=== PATIENT | male | born 1955 | race Caucasian/White ===

== ENCOUNTER 2016-11-22 10:51 | Inpatient (IN) | payer MEDICARE ==
[~2016-11-22] VITALS: Ht 170.2 cm; Wt 64.6 kg
[2016-11-22] MEDS ORDERED: LORazepam 2 MG/ML, 1ML ONE (11:11)
[2016-11-22] MEDS ORDERED: LORazepam 2 MG/ML, 1ML IVPush ONE (11:30)
[2016-11-22 12:42] LABS: BLOOD UREA NITROGEN 8 mg/dL (7-18)
[2016-11-22 12:44] LABS: ASPARTATE AMINO TRANSFERASE 38 U/L (15-37)
[2016-11-22 13:04] LABS: HEMOGLOBIN 16.6 g/dL (13.7-18.0)
[2016-11-22 13:06] LABS: DAU SCREEN DISCLAIMER
[2016-11-22] MEDS ORDERED: LISI2.5T PO (14:15)
[2016-11-22] MEDS ORDERED: HYDR12.53 PO (14:15)
[2016-11-22] MEDS ORDERED: HYDR25TA6 PO (14:17)
[2016-11-22] MEDS ORDERED: LISI40TA PO (14:18)
[2016-11-22] MEDS ORDERED: AMLO5TAB2 PO (14:18)
[2016-11-22] MEDS ORDERED: ALBU18HF INH (14:19)
[2016-11-22] MEDS ORDERED: DOCUSATE 100 MG CAPSULE PO PRN (14:30)
[2016-11-22] MEDS ORDERED: LORazepam 2 MG/ML, 1ML IV PRN (14:30)
[2016-11-22] MEDS ORDERED: NICOTINE 21 MG/24 HR PATCH.TD24 TD ONE (14:30)
[2016-11-22] MEDS ORDERED: ONDANSETRON 2MG/ML, 2ML IV PRN (14:30)
[2016-11-22 14:53] LABS: ICTOTEST NEGATIVE
[2016-11-22] MEDS ORDERED: LISINOPRIL 10 MG TABLET PO SCH (15:00)
[2016-11-22] MEDS ORDERED: GADOBUTROL 7.5 MMOL/7.5 ML PFS ONE (15:03)
[2016-11-22] MEDS ORDERED: ALBUTEROL SULFATE 2.5 MG/3 ML NPPB PRN (15:30)
[2016-11-22] MEDS ORDERED: NICOTINE 21 MG/24 HR PATCH.TD24 ONE (15:39)
[2016-11-22] MEDS ORDERED: ENOXAPARIN 40 MG/0.4 ML ONE (15:39)
[2016-11-22] MEDS: ENOXAPARIN 40 MG/0.4 ML SQ SCH (15:49)
[2016-11-22] MEDS: SODIUM CHLORIDE 0.9% 1,000 ML IV SCH (15:50)
[2016-11-22] MEDS ORDERED: ACETAMINOPHEN 650 MG/20.3 ML UDC ONE (21:02)
[2016-11-22] MEDS: ACETAMINOPHEN 650 MG/20.3 ML UDC PO PRN (21:09)
[2016-11-23] VITALS (11 sets, daily range): BP systolic 144–214; BP diastolic 70–109
[2016-11-23] MEDS ORDERED: hydrALAzine 20 MG/ML, 1ML ONE (01:23)
[2016-11-23] MEDS: hydrALAzine 20 MG/ML, 1ML IV PRN ×2 (01:26→09:01)
[2016-11-23 05:55] LABS: BLOOD UREA NITROGEN 7 mg/dL (7-18)
[2016-11-23 05:59] LABS: ASPARTATE AMINO TRANSFERASE 33 U/L (15-37)
[2016-11-23] MEDS ORDERED: LISINOPRIL 10 MG TABLET PO SCH (09:00)
[2016-11-23] MEDS ORDERED: AMLODIPINE 5 MG TABLET PO SCH (09:00)
[2016-11-23] MEDS: FOLIC ACID 1 MG TABLET PO SCH (09:20)
[2016-11-23] MEDS: DIVALPROEX 500 MG TABLET.DR PO SCH (09:20)
[2016-11-23] MEDS: THIAMINE 100MG TABLET PO SCH (09:22)
[2016-11-23] MEDS: LISINOPRIL 20 MG TABLET PO SCH (10:19)
[2016-11-23] MEDS: LABETALOL 5MG/ML, 20ML IVPush PRN (11:00)
[2016-11-23] MEDS: SODIUM CHLORIDE 0.9% 1,000 ML IV SCH (21:02)
[2016-11-23] MEDS: AMLODIPINE 5 MG TABLET PO SCH (22:07)
[2016-11-23] MEDS: ATORVASTATIN 20 MG TABLET PO SCH (22:07)
[2016-11-23] MEDS: ENOXAPARIN 40 MG/0.4 ML SQ SCH (22:07)
[2016-11-24] VITALS (7 sets, daily range): BP systolic 137–203; BP diastolic 68–99
[2016-11-24] MEDS: hydrALAzine 20 MG/ML, 1ML IV PRN ×2 (01:55→13:13)
[2016-11-24] MEDS: ACETAMINOPHEN 650 MG/20.3 ML UDC PO PRN (01:59)
[2016-11-24] MEDS ORDERED: LORazepam 1MG TABLET ONE (05:09)
[2016-11-24] MEDS: ASPIRIN 81 MG TABLET EC PO SCH (05:23)
[2016-11-24] MEDS: NICOTINE 14MG/24 HR PATCH.TD24 TD SCH (05:24)
[2016-11-24] MEDS: LORazepam 0.5MG TABLET PO PRN (05:24)
[2016-11-24 06:19] LABS: HEMOGLOBIN 15.6 g/dL (13.7-18.0)
[2016-11-24 06:34] LABS: BLOOD UREA NITROGEN 6 mg/dL (7-18)
[2016-11-24] MEDS: DIVALPROEX 500 MG TABLET.DR PO SCH (09:37)
[2016-11-24] MEDS: FOLIC ACID 1 MG TABLET PO SCH (09:37)
[2016-11-24] MEDS: THIAMINE 100MG TABLET PO SCH (09:38)
[2016-11-24] MEDS: LISINOPRIL 20 MG TABLET PO SCH (09:38)
[2016-11-24] MEDS: AMLODIPINE 5 MG TABLET PO SCH ×2 (09:38→19:49)
[2016-11-24] MEDS ORDERED: POTASSIUM CHLORIDE 20 MEQ TAB.ER.PRT PO ONE (10:30)
[2016-11-24] MEDS: SODIUM CHLORIDE 0.9% 1,000 ML IV SCH (11:41)
[2016-11-24] MEDS: ATORVASTATIN 20 MG TABLET PO SCH (19:49)
[2016-11-24] MEDS: ENOXAPARIN 40 MG/0.4 ML SQ SCH (19:50)
[2016-11-25 01:49] VITALS: BP 162/87
[2016-11-25] MEDS: SODIUM CHLORIDE 0.9% 1,000 ML IV SCH (04:27)
[2016-11-25] MEDS: ASPIRIN 81 MG TABLET EC PO SCH (06:08)
[2016-11-25] MEDS: NICOTINE 14MG/24 HR PATCH.TD24 TD SCH (06:14)
[2016-11-25 06:16] LABS: BLOOD UREA NITROGEN 4 mg/dL (7-18)
[2016-11-25 06:39] VITALS: BP 172/85
[2016-11-25] MEDS: LORazepam 2 MG/ML, 1ML IV PRN ×2 (08:27→11:49)
[2016-11-25] MEDS ORDERED: LORazepam 0.5MG TABLET PO PRN (08:30)
[2016-11-25] MEDS ORDERED: LORazepam 2 MG/ML, 1ML IV PRN ×4 (08:30)
[2016-11-25] MEDS ORDERED: LORazepam 1MG TABLET PO PRN ×4 (08:30)
[2016-11-25] MEDS: DIVALPROEX 500 MG TABLET.DR PO SCH (10:00)
[2016-11-25] MEDS: AMLODIPINE 5 MG TABLET PO SCH (10:00)
[2016-11-25] MEDS: THIAMINE 100MG TABLET PO SCH (10:00)
[2016-11-25] MEDS: FOLIC ACID 1 MG TABLET PO SCH (10:00)
[2016-11-25] MEDS: LOSARTAN 50MG TABLET PO SCH (11:50)
[2016-11-25 14:20] VITALS: BP 105/69
[2016-11-25 16:23] VITALS: BP 130/85
[2016-11-25] MEDS: LORazepam 0.5MG TABLET PO PRN (18:36)
[2016-11-25 19:44] VITALS: BP 163/80
[2016-11-25] MEDS: ENOXAPARIN 40 MG/0.4 ML SQ SCH (20:52)
[2016-11-25] MEDS: ATORVASTATIN 20 MG TABLET PO SCH (20:52)
[2016-11-26 01:57] VITALS: BP 160/81
[2016-11-26 05:06] LABS: BLOOD UREA NITROGEN 11 mg/dL (7-18)
[2016-11-26] MEDS: ASPIRIN 81 MG TABLET EC PO SCH (06:05)
[2016-11-26] MEDS: NICOTINE 14MG/24 HR PATCH.TD24 TD SCH (06:05)
[2016-11-26 07:13] VITALS: BP 151/93
[2016-11-26] MEDS: DIVALPROEX 500 MG TABLET.DR PO SCH (08:47)
[2016-11-26] MEDS: LOSARTAN 50MG TABLET PO SCH (08:47)
[2016-11-26] MEDS: FOLIC ACID 1 MG TABLET PO SCH (08:47)
[2016-11-26] MEDS: THIAMINE 100MG TABLET PO SCH (08:47)
[2016-11-26] MEDS ORDERED: LORazepam 2 MG/ML, 1ML IVPush PRN (13:00)
[2016-11-26 13:39] VITALS: BP 149/72
[2016-11-26 18:57] VITALS: BP 145/79
[2016-11-26] MEDS: ACETAMINOPHEN 650 MG/20.3 ML UDC PO PRN (20:16)
[2016-11-26] MEDS: ATORVASTATIN 20 MG TABLET PO SCH (20:16)
[2016-11-26] MEDS: ENOXAPARIN 40 MG/0.4 ML SQ SCH (20:16)
[2016-11-27 00:45] VITALS: BP 170/79
[2016-11-27] MEDS: ASPIRIN 81 MG TABLET EC PO SCH (05:14)
[2016-11-27] MEDS: NICOTINE 14MG/24 HR PATCH.TD24 TD SCH (05:15)
[2016-11-27 05:36] LABS: BLOOD UREA NITROGEN 11 mg/dL (7-18)
[2016-11-27 07:31] VITALS: BP 188/91
[2016-11-27] MEDS: DIVALPROEX 500 MG TABLET.DR PO SCH (08:47)
[2016-11-27] MEDS: LABETALOL 5MG/ML, 20ML IVPush PRN (08:47)
[2016-11-27] MEDS: FOLIC ACID 1 MG TABLET PO SCH (08:48)
[2016-11-27] MEDS: LOSARTAN 50MG TABLET PO SCH (08:48)
[2016-11-27] MEDS: THIAMINE 100MG TABLET PO SCH (08:48)
[2016-11-27 10:58] VITALS: BP_SYST 177; BP_SYST 219; BP_DIAS 82; BP_DIAS 89
[2016-11-27] MEDS: ENALAPRILAT 1.25 MG/ML, 2ML IV PRN (11:18)
[2016-11-27 12:33] VITALS: BP 166/88
[2016-11-27 13:21] VITALS: BP 161/84
[2016-11-27 20:00] VITALS: BP 168/85
[2016-11-27] MEDS: ATORVASTATIN 20 MG TABLET PO SCH (21:55)
[2016-11-27] MEDS: ENOXAPARIN 40 MG/0.4 ML SQ SCH (21:55)
[2016-11-28 02:26] VITALS: BP 154/78
[2016-11-28] MEDS: ASPIRIN 81 MG TABLET EC PO SCH (06:10)
[2016-11-28] MEDS: NICOTINE 14MG/24 HR PATCH.TD24 TD SCH (06:14)
[2016-11-28 06:31] LABS: HEMOGLOBIN 16.2 g/dL (13.7-18.0)
[2016-11-28 06:36] LABS: BLOOD UREA NITROGEN 12 mg/dL (7-18)
[2016-11-28 08:00] VITALS: BP 188/90
[2016-11-28] MEDS: LOSARTAN 50MG TABLET PO SCH (08:50)
[2016-11-28] MEDS: FOLIC ACID 1 MG TABLET PO SCH (08:50)
[2016-11-28] MEDS: DIVALPROEX 500 MG TABLET.DR PO SCH (08:50)
[2016-11-28] MEDS: THIAMINE 100MG TABLET PO SCH (08:50)
[2016-11-28] MEDS: ENALAPRILAT 1.25 MG/ML, 2ML IV PRN (08:50)
[2016-11-28 13:20] LABS: HIV 1&2 ANTIBODY SCREEN Nonreactive (Nonreactive); HIV-1 p24 ANTIGEN Nonreactive (Nonreactive)
[2016-11-28 13:50] VITALS: BP 174/83
[2016-11-28 20:40] VITALS: BP 139/81
[2016-11-28] MEDS: ENOXAPARIN 40 MG/0.4 ML SQ SCH (20:43)
[2016-11-28] MEDS: ATORVASTATIN 20 MG TABLET PO SCH (20:43)
[2016-11-29 01:29] VITALS: BP 134/75
[2016-11-29] MEDS: ASPIRIN 81 MG TABLET EC PO SCH (06:06)
[2016-11-29] MEDS: NICOTINE 14MG/24 HR PATCH.TD24 TD SCH (06:07)
[2016-11-29 08:45] VITALS: BP_SYST 174; BP_SYST 179; BP_DIAS 84; BP_DIAS 90
[2016-11-29] MEDS: FOLIC ACID 1 MG TABLET PO SCH (09:33)
[2016-11-29] MEDS: DIVALPROEX 500 MG TABLET.DR PO SCH (09:33)
[2016-11-29] MEDS: THIAMINE 100MG TABLET PO SCH (09:33)
[2016-11-29] MEDS: LOSARTAN 50MG TABLET PO SCH (09:33)
[2016-11-29] MEDS ORDERED: LOSA50TA2 PO (11:06)
[2016-11-29] MEDS ORDERED: THIA100T6 PO (11:06)
[2016-11-29] MEDS ORDERED: ZONI50CA2 PO (11:06)
[2016-11-29] MEDS ORDERED: ASPI-621 PO (11:06)
[2016-11-29] MEDS ORDERED: DIVA500T9 PO (11:06)
[2016-11-29] MEDS ORDERED: ATOR20TA9 PO (11:06)
[2016-11-29] MEDS ORDERED: FOLI-17 PO (11:06)
[2016-11-29] MEDS ORDERED: ZONISAMIDE 50 MG CAPSULE PO SCH (21:00)
== END 2016-11-29 13:25 | disposition home or self-care (01) | DRG 100 ==
LOC: ED 13:31 → EDIP 13:32 → ED 13:49 → 5SO 11-23 02:13 → 4EST 11-23 19:15 → DCLOUNGE 11-29 13:10
PROVIDERS: ADMIT Internal Medicine; ATTEND Internal Medicine
DX: G40.209 Localization-related (focal) (partial) symptomatic epilepsy and epileptic syndromes with complex partial seizures, not intractable, without status epilepticus (principal); G93.40 Encephalopathy, unspecified; E44.1 Mild protein-calorie malnutrition; B19.10 Unspecified viral hepatitis B without hepatic coma; E87.1 Hypo-osmolality and hyponatremia; B18.1 Chronic viral hepatitis B without delta-agent; I16.1 Hypertensive emergency; F10.239 Alcohol dependence with withdrawal, unspecified; Z72.820 Sleep deprivation; D72.829 Elevated white blood cell count, unspecified; Z91.14 Patient's other noncompliance with medication regimen; F17.210 Nicotine dependence, cigarettes, uncomplicated; F31.9 Bipolar disorder, unspecified; I11.9 Hypertensive heart disease without heart failure; J44.9 Chronic obstructive pulmonary disease, unspecified; Z68.22 Body mass index [BMI] 22.0-22.9, adult; Z83.3 Family history of diabetes mellitus; Z82.5 Family history of asthma and other chronic lower respiratory diseases
CPT/HCPCS: 36415; 70450; 70553; 71020; 76700; 80048; 80053; 80164; 80307; 80329; 81001; 82140; 82962; 83605; 83735; 83930; 83935; 84100; 84300; 84439; 84443; 84481; 85025; 85610; 85730; 86592; 86703; 86704; 86706; 86708; 86803; 87340; 87899; 93005; 95812; 95816; 95819; 96372; 96374; 96375; A9585; J1650; G0435; G0480; J0360; J2060; J7030

== ENCOUNTER 2016-11-30 12:15 | Emergency (ER) | payer MEDICARE ==
[~2016-11-30] VITALS: Ht 170.2 cm; Wt 68.0 kg
[~2016-11-30 12:15] MED LIST: ALBU18HF INH; AMLO5TAB2 PO; ASPI-621 PO; ATOR20TA9 PO; DIVA500T9 PO; FOLI-17 PO; HYDR12.53 PO; HYDR25TA6 PO; LISI2.5T PO; LISI40TA PO; LOSA50TA2 PO; THIA100T6 PO; ZONI50CA2 PO
[2016-11-30 12:53] LABS: HEMOGLOBIN 15.1 g/dL (13.7-18.0)
[2016-11-30] MEDS ORDERED: SODIUM CHLORIDE FLUSH 10ML SYR IVF ONE (13:00)
[2016-11-30 13:06] LABS: ASPARTATE AMINO TRANSFERASE 305 U/L (15-37); BLOOD UREA NITROGEN 28 mg/dL (7-18)
[2016-11-30] MEDS ORDERED: SODIUM CHLORIDE 0.9% 1,000ML IVBOLUS ONE (14:00)
[2016-11-30 16:14] VITALS: BP 135/70
== END 2016-11-30 16:16 | disposition home or self-care (01) ==
LOC: ED 13:46
DX: R41.82 Altered mental status, unspecified (principal); F44.89 Other dissociative and conversion disorders
CPT/HCPCS: 36415; 70450; 80053; 80307; 82140; 85025; 85610; 85730; 93005; 99285; J7030

== ENCOUNTER 2016-12-11 01:21 | Emergency (ER) | payer MEDICARE ==
[~2016-12-11] VITALS: Ht 175.3 cm; Wt 57.7 kg
[2016-12-11 01:22] VITALS: BP 148/84
[2016-12-11] MEDS ORDERED: LORazepam 1MG TABLET PO ONE (02:00)
== END 2016-12-11 02:31 | disposition home or self-care (01) ==
LOC: ED 02:20
DX: Z76.0 Encounter for issue of repeat prescription (principal); F41.1 Generalized anxiety disorder; I10 Essential (primary) hypertension; F31.9 Bipolar disorder, unspecified; G40.909 Epilepsy, unspecified, not intractable, without status epilepticus
CPT/HCPCS: 99283

== ENCOUNTER 2017-01-03 03:02 | Emergency (ER) | payer MEDICARE ==
[~2017-01-03] VITALS: Ht 162.6 cm; Wt 55.0 kg
[2017-01-03] MEDS ORDERED: LORazepam 1MG TABLET PO ONE (03:30)
[2017-01-03] MEDS ORDERED: LIDOCAINE 1%, 20ML INFIL ONE (03:30)
[2017-01-03] MEDS ORDERED: LIDOCAINE 1%, 20ML ONE (03:35)
[2017-01-03] MEDS ORDERED: LORazepam 1MG TABLET ONE (03:46)
[2017-01-03 04:22] VITALS: BP 154/85
== END 2017-01-03 04:23 | disposition home or self-care (01) ==
LOC: ED 03:59
DX: Z76.0 Encounter for issue of repeat prescription (principal); L03.113 Cellulitis of right upper limb; F10.10 Alcohol abuse, uncomplicated; F31.9 Bipolar disorder, unspecified; F41.1 Generalized anxiety disorder; G40.909 Epilepsy, unspecified, not intractable, without status epilepticus; I10 Essential (primary) hypertension; B18.1 Chronic viral hepatitis B without delta-agent
CPT/HCPCS: 99283

== ENCOUNTER 2017-03-07 06:19 | Emergency (ER) | payer MEDICARE ==
[~2017-03-07] VITALS: Ht 170.2 cm; Wt 51.3 kg
[2017-03-07 06:23] VITALS: BP 174/89
== END 2017-03-07 07:01 | disposition left against medical advice (07) ==
LOC: ED 06:55
DX: R42 Dizziness and giddiness (principal); R51 Headache; Z53.21 Procedure and treatment not carried out due to patient leaving prior to being seen by health care provider
CPT/HCPCS: 93005

== ENCOUNTER 2017-05-03 13:04 | Emergency (ER) | payer MEDICARE ==
[~2017-05-03] VITALS: Ht 170.2 cm; Wt 51.3 kg
[~2017-05-03 13:04] MED LIST changes: +DIVA-68 PO; -DIVA500T9 PO
[2017-05-03] MEDS ORDERED: SODIUM CHLORIDE FLUSH 10ML SYR IVF ONE (14:00)
[2017-05-03 14:25] LABS: HEMATOCRIT 44.1 % (39.2-51.8); HEMOGLOBIN 14.1 g/dL (13.7-18.0); WHITE BLOOD COUNT 11.8 x10^3/uL (3.4-10)
[2017-05-03 14:29] VITALS: BP 140/68
[2017-05-03 14:37] LABS: BLOOD UREA NITROGEN 18 mg/dL (7-18)
[2017-05-03 14:42] LABS: ASPARTATE AMINO TRANSFERASE 13 U/L (15-37)
[2017-05-03 14:43] LABS: IS PT STATUS REG ER OR PRE ER? YES
== END 2017-05-03 15:05 | disposition home or self-care (01) ==
LOC: ED 14:31
DX: J44.1 Chronic obstructive pulmonary disease with (acute) exacerbation (principal); I10 Essential (primary) hypertension; F17.200 Nicotine dependence, unspecified, uncomplicated
CPT/HCPCS: 36415; 71010; 80053; 83880; 84484; 85025; 87040; 93005; 99285; J7512

== ENCOUNTER 2017-10-29 02:56 | Emergency (ER) | payer MEDICARE ==
[~2017-10-29] VITALS: Ht 170.2 cm; Wt 57.2 kg
[2017-10-29 02:58] VITALS: BP 178/108
== END 2017-10-29 04:29 | disposition home or self-care (01) ==
LOC: ED 04:23
DX: Z00.00 Encounter for general adult medical examination without abnormal findings (principal); I10 Essential (primary) hypertension; J44.9 Chronic obstructive pulmonary disease, unspecified; G40.909 Epilepsy, unspecified, not intractable, without status epilepticus; F31.9 Bipolar disorder, unspecified
CPT/HCPCS: 99281

== ENCOUNTER 2017-11-09 08:29 | Emergency (ER) | payer MEDICARE ==
[~2017-11-09] VITALS: Ht 167.6 cm; Wt 80.0 kg
[2017-11-09 09:20] LABS: BASOPHILS # (AUTO) 0.11 x10^3/uL (0-0.1); BASOPHILS % (AUTO) 1 % (0-1); EOSINOPHILS # (AUTO) 0.31 x10^3/uL (0-0.4); EOSINOPHILS % (AUTO) 4 % (1-7); LYMPHOCYTES # (AUTO) 2.76 x10^3/uL (1-3.4); LYMPHOCYTES % (AUTO) 32 % (22-44); MD NO; MEAN CORPUSCULAR HEMOGLOBIN 28.1 pg (27.5-34.5); MEAN CORPUSCULAR HGB CONC 32.9 g/dL (33.2-36.2); MEAN CORPUSCULAR VOLUME 85.4 fL (81-97); MEAN PLATELET VOLUME 7.4 fL (7.4-10.4); MONOCYTES # (AUTO) 0.79 x10^3/uL (0.2-0.8); MONOCYTES % (AUTO) 9 % (2-9); NEUTROPHILS # (AUTO) 4.79 x10^3/uL (1.8-6.8); NEUTROPHILS % (AUTO) 55 % (42-75); PLATELET COUNT 335 x10^3/uL (130-400); RED BLOOD COUNT 4.79 x10^6/uL (4.38-5.82); RED CELL DISTRIBUTION WIDTH 18.2 % (9.4-14.8)
[2017-11-09 09:30] LABS: INTERNATIONAL NORMALIZED RATIO 0.98 (0.93-1.1); PROTHROMBIN TIME 10.1 Seconds (9.6-11.5)
[2017-11-09] MEDS ORDERED: SODIUM CHLORIDE FLUSH 10ML SYR IVF ONE (09:30)
[2017-11-09] MEDS ORDERED: SODIUM CHLORIDE 0.9% 1,000ML IVBOLUS ONE (09:30)
[2017-11-09 09:34] LABS: ALANINE AMINOTRANSFERASE 27 U/L (12-78); ANION GAP 5 mmol/L (5-15); CALCIUM 8.3 mg/dL (8.5-10.1); CHLORIDE 101 mmol/L (98-107); CREATININE 0.86 mg/dL (0.7-1.3)
[2017-11-09 09:38] LABS: ALKALINE PHOSPHATASE 66 U/L (45-117); BILIRUBIN,TOTAL 0.3 mg/dL (0.2-1.0); TROPONIN I < 0.015 ng/mL (0.000-0.045)
[2017-11-09 10:59] VITALS: BP 125/48
== END 2017-11-09 11:34 | disposition home or self-care (01) ==
LOC: ED 10:27
DX: R07.89 Other chest pain (principal); E11.9 Type 2 diabetes mellitus without complications; I10 Essential (primary) hypertension; J44.9 Chronic obstructive pulmonary disease, unspecified; F15.10 Other stimulant abuse, uncomplicated
CPT/HCPCS: 36415; 71045; 80053; 84484; 85025; 85610; 93005; 99285